=== PATIENT | female | born 1985 | race Caucasian/White ===

== ENCOUNTER 2024-03-16 11:01 | Emergency (ER) | payer OTHER, SELFPAY ==
[2024-03-16 11:10] VITALS: BP 129/78
[2024-03-16 12:24] VITALS: BMI 25.3
--- NOTE | 2024-03-16 12:25 | ED.GENMED ---
History of Present Illness
<Domitila Lynn PA-C - Last Filed: 03/16/24 17:00>
General
Chief Complaint: Abdominal Pain
Source: patient
Exam Limitations: none
Time Seen by Provider: 03/16/24 12:04
Nursing documentation reviewed up to this point in time: agreed with
History of Present Illness
History of Present Illness:
Patient is a 38-year-old female presenting to the emergency department for evaluation of right-sided abdominal pain. Patient states symptoms started around 2 PM on Friday afternoon while she was playing with her kids. She reports a cramping type
pain in her right lower abdomen that has been constant. She denies any radiation of pain around to her back or to her pelvis. Pain has been severe enough to keep her awake at night. She does endorse associated nausea, but no vomiting. She has
had significant anorexia and has not eaten anything since pain onset on Friday. Patient reports a fever of 100.4 F yesterday and chills throughout the day. Patient denies any urinary symptoms or abnormal vaginal bleeding or discharge. Patient
does note that initially she felt overall achy and unwell and is wondering if it may be food poisoning. Given persistence of symptoms and severity she sought medical attention today.
Patient was seen in the urgent care this morning and was referred to the emergency department for further evaluation.
Patient denies any history of ovarian cysts. Patient has had 2 sections in the past but denies any other abdominal surgeries.
Review of Systems
<Domitila Lynn PA-C - Last Filed: 03/16/24 17:00>
Review of Systems
Allergies reviewed?: Yes
All Other Systems: ROS reviewed and negative except as documented in HPI and ROS
Phy Exam
<Domitila Lynn PA-C - Last Filed: 03/16/24 17:00>
Physical Exam
Physical Exam:
Vitals: Patient's vital signs are stable. Afebrile
General: Patient is well appearing, no acute distress. Nontoxic appearing
Skin: Warm and dry, no rashes or lesions
Head: Normocephalic, atraumatic
Eyes: Sclera nonicteric. EOMs intact. No nystagmus.
Throat: Protecting airway
Neck: Normal ROM, no cervical spine tenderness, no meningismus
Cardiac: Regular rate and rhythm, no murmurs.
Pulm: Normal respiratory effort, no wheezes, rales, rhonchi heard on exam.
Abdomen: Abdomen soft. Moderate tenderness in right lower quadrant at McBurney's point with no rebound tenderness or guarding. No tenderness lower in pelvic region. No CVA tenderness
Extremities: No evidence of cyanosis or edema
Neuro: Grossly intact.
Psychiatric: Normal affect.
Course
<Domitila Lynn PA-C - Last Filed: 03/16/24 17:00>
Orders/Labs/Results
Orders:
Orders
03/16/24 12:21
0.9% Sodium Chloride 1000 ml [Nss] 1,000 ml IV BOLUS
Ketorolac [Toradol] 15 mg IV NOW STA
Test Result ONCE
03/16/24 12:27
Complete Blood Count/With Diff Urgent
Comprehensive Metabolic Panel Urgent
HCG, Serum Qualitative Screen Urgent
Lipase Urgent
03/16/24 12:29
CT Abd/Pel (IV only)-DH only Urgent
Comment:
Reason For Exam: RLQ abdominal pain, +nasuea and anorexia
03/16/24 13:12
Urinalysis Reflex To Culture Urgent
Date Specimen was Collected: 03/16/24
Time Specimen was Collected: 13:11
Urine Microscopic Reflex Cult Urgent
Urine Culture Urgent
PADMINI Source: U
Specimen Description:
Date Specimen was Collected: 03/16/24
Time Specimen was Collected: 13:11
03/16/24 15:09
Cephalexin Monohydrate [Keflex] 500 mg PO NOW STA
Abnormal Lab Results
03/16/24 03/16/24
12:27 13:12
Absolute Neuts (auto) 7.5 H 10^3/uL
(1.4-6.5)
Absolute Lymphs (auto) 0.8 L 10^3/uL
(1.2-3.4)
Absolute Monos (auto) 0.8 H 10^3/uL
(0.1-0.6)
Neutrophils % 81.7 H %
(42.2-75.2)
Lymphocytes % 8.8 L %
(20.5-51.1)
Creatinine 0.5 L mg/dL
(0.6-1.0)
Glucose 100 H mg/dl
(70-99)
Urine Ketones 3+ A
(Negative)
Ur Occult Blood Reflex 2+ A
(Negative)
Urine Nitrite (Reflex) Positive A
(Negative)
Leukocyte Esterase Rfl Trace A
(Negative)
Urine RBC 3-6 A /HPF
(0-2)
Urine Bacteria (Reflex) Many A
(Negative)
03/16/24 12:27
03/16/24 12:27
Vital Signs
Initial and Last Documented VS:
Initial Vital Signs
Temp Pulse Resp BP Pulse Ox
98.8 F 76 18 129/78 100
03/16/24 11:10 03/16/24 11:10 03/16/24 11:10 03/16/24 11:10 03/16/24 11:10
Last Documented Vital Signs
Temp Pulse Resp BP Pulse Ox
98.8 F 69 16 125/74 99
03/16/24 11:10 03/16/24 13:13 03/16/24 14:00 03/16/24 13:13 03/16/24 13:13
<Olivia Casanova MD - Last Filed: 03/16/24 14:21>
Orders/Labs/Results
Orders:
Orders
03/16/24 12:21
0.9% Sodium Chloride 1000 ml [Nss] 1,000 ml IV BOLUS
Ketorolac [Toradol] 15 mg IV NOW STA
Test Result ONCE
03/16/24 12:27
Complete Blood Count/With Diff Urgent
Comprehensive Metabolic Panel Urgent
HCG, Serum Qualitative Screen Urgent
Lipase Urgent
03/16/24 12:29
CT Abd/Pel (IV only)-DH only Urgent
Comment:
Reason For Exam: RLQ abdominal pain, +nasuea and anorexia
03/16/24 13:12
Urinalysis Reflex To Culture Urgent
Date Specimen was Collected: 03/16/24
Time Specimen was Collected: 13:11
Urine Microscopic Reflex Cult Urgent
Urine Culture Urgent
PADMINI Source: U
Specimen Description:
Date Specimen was Collected: 03/16/24
Time Specimen was Collected: 13:11
03/16/24 15:09
Cephalexin Monohydrate [Keflex] 500 mg PO NOW STA
Abnormal Lab Results
03/16/24 03/16/24
12:27 13:12
Absolute Neuts (auto) 7.5 H 10^3/uL
(1.4-6.5)
Absolute Lymphs (auto) 0.8 L 10^3/uL
(1.2-3.4)
Absolute Monos (auto) 0.8 H 10^3/uL
(0.1-0.6)
Neutrophils % 81.7 H %
(42.2-75.2)
Lymphocytes % 8.8 L %
(20.5-51.1)
Creatinine 0.5 L mg/dL
(0.6-1.0)
Glucose 100 H mg/dl
(70-99)
Urine Ketones 3+ A
(Negative)
Ur Occult Blood Reflex 2+ A
(Negative)
Urine Nitrite (Reflex) Positive A
(Negative)
Leukocyte Esterase Rfl Trace A
(Negative)
Urine RBC 3-6 A /HPF
(0-2)
Urine Bacteria (Reflex) Many A
(Negative)
03/16/24 12:27
03/16/24 12:27
Vital Signs
Initial and Last Documented VS:
Initial Vital Signs
Temp Pulse Resp BP Pulse Ox
98.8 F 76 18 129/78 100
03/16/24 11:10 03/16/24 11:10 03/16/24 11:10 03/16/24 11:10 03/16/24 11:10
Last Documented Vital Signs
Temp Pulse Resp BP Pulse Ox
98.8 F 69 16 125/74 99
03/16/24 11:10 03/16/24 13:13 03/16/24 14:00 03/16/24 13:13 03/16/24 13:13
<Domitila Lynn PA-C - Last Filed: 03/16/24 17:00>
MDM/Problems Addressed
Differential Diagnosis Includes:
Not limited to: Enteritis, appendicitis, mesenteric adenitis, UTI, kidney stone, ovarian cyst, ovarian torsion
MDM/Problems Addressed:
38-year-old female presenting with 2 days of right lower abdominal pain associated with anorexia and low-grade fevers at home. No urinary symptoms, vomiting, diarrhea, or constipation. No history of ovarian cyst. Patient's vital signs are stable,
she is afebrile here. Patient is very well-appearing, conversational and nontoxic. Abdomen is soft with mild tenderness in right lower quadrant near McBurney's point without rebound tenderness or guarding. No CVA tenderness. Patient has no lower
tenderness in pelvic region bilaterally. Labs were initiated in triage which showed no clinically significant abnormalities. test is negative. Patient's pain does appear more superior to the pelvic region. Given patient's history of
fevers at home�will start with CT scan abdomen/pelvis to rule out acute intra-abdominal infection. Will check urinalysis, as well. Presentation not consistent with ovarian torsion. Will give Toradol, fluids.
CT report reviewed. Mild colitis, nonspecific. There is a cyst noted on the right ovary with small amount of free fluid. Pain possibly related to recent ovarian cyst rupture. Urinary bladder wall thickening noted on CT scan recommended to
correlate with urinalysis. UA appears somewhat equivocal for infection given positive for nitrate and leukocyte Estrace, although few WBCs. Given patient's history of fever and abdominal pain�will treat with 7 days of Keflex although unsure if
contributing to patient's symptoms. Close return precautions discussed given known ovarian cyst and risk of torsion. Although again�exam today not consistent with torsion. Patient has responded well to Toradol and without pain at this time.
Patient will follow-up with both primary care and [facility]. Close return precautions discussed. Patient seen with attending physician. Patient stable for discharge.
Chronic conditions affecting care:
N/A
Acute Exacerbation and/or Progression of Chronic Illness:
N/A
<Domitila Lynn PA-C - Last Filed: 03/16/24 17:00>
*Radiology
Radiology exam reviewed: preliminary read by ED provider and radiology read reviewed
*Pulse Oximetry
Patient hypoxic: no
*EKG
Interpreted by ED Provider?: NA
*Manager Club Interpretation
Rate: Manager Club- N/A
*Critical Care Note
Total Time (30-74mins, 75-104mins- exclusive of procedures): Not Applicable
ED Attending Note
<Domitila Lynn PA-C - Last Filed: 03/16/24 17:00>
-
Portions of this chart may have been created with voice recognition software.� Occasional wrong word or��sound alike� substitutions may have occurred due to the inherent limitations of voice recognition software.
<Olivia Casanova MD - Last Filed: 03/16/24 14:21>
ED Attending Note
Patient seen and examined by attending physician: Yes
I performed the substantive portion of visit, reviewed & personally made and approve the management plan that is documented in note by myself or SHELBIE.: Yes
ED Attending Note:
38-year-old woman presenting to the emergency department with abdominal pain for the past 2 days. Right lower quadrant constant with some flares. No radiation. No vaginal discharge. Some nausea but no vomiting. No diarrhea. No prior surgical
history. No sick contacts. No urinary symptoms. Last menstrual period February 21. Vitals are unremarkable and exam does show some right lower quadrant tenderness. otherwise exam is reassuring and she is well appearing. Differential is broad
but consists of UTI versus kidney stone versus enthesitis less likely. Could be ovarian cyst rupture.
Exam not consistent with torsion or PID. Will obtain blood work and CT. Dispo pending results
Discharge Plan
Departure
Patient Disposition: Home (Routine Discharge)
Date of Disposition: 03/16/24
Time of Disposition: 15:09
Patient with high blood pressure during this ER visit?: No
Condition: Good
Covid-19: Not Applicable
Discharge Problem:
Acute UTI, Abdominal pain, Ovarian cyst, right
Instructions: Abdominal Pain, Adult ED, Urinary Tract Infection, Adult ED, Ovarian Cyst ED
Prescriptions:
New
cephalexin 500 mg capsule
500 mg PO BID 7 Days Qty: 14 0RF
No Action
vit-iron fum-folic ac 1 EACH tablet
1 ea PO DAILY
acetaminophen 325 mg Tablet
650 mg PO Q4HPRN PRN (Reason: mild pain) Qty: 0 0RF
ibuprofen 600 mg Tablet
600 mg PO Q6HPRN PRN (Reason: cramps) Qty: 0 0RF
Referrals:
Loren Waters MD [Family Provider] - Follow up in 5-7 days
Activity Restrictions/Additional Instructions:
RETURN TO THE EMERGENCY DEPARTMENT WITH ANY FEVERS, SEVERE/PERSISTENT ABDOMINAL PAIN, INTRACTABLE NAUSEA/VOMITING, SEVERE BACK PAIN, LOSS OF APPETITE, WORSENING IN CURRENT SYMPTOMS, OR ANY OTHER CONCERNS
-Your prescriptions have been sent to your pharmacy.
-You can take motrin/tylenol at home as needed for discomfort. It is important to stay well hydrated.
-Follow-up with your primary care/OBGYN for further evaluation/management.
Monitor your symptoms closely and return to the emergency department with any acute worsening/new symptoms.
Interventions
Interventions:
*Risk Screen - Suicide Last Done: 03/16/24 12:24
*General Assessment Last Done: 03/16/24 12:24
*Neglect/Abuse Screening Last Done: 03/16/24 12:24
ED- Fall Risk Assessment Last Done: 03/16/24 15:25
*ED COVID-19 Vaccine History Last Done: 03/16/24 12:21
*Nursing Disposition Last Done: 03/16/24 15:25
OM-Efliak-Ngtynmjmuz Assessment Last Done: 03/16/24 12:24
Discharge Date and Time
Discharge Date/Time: 03/16/24 15:26
Print Language: SOUTH SUDANESE
[2024-03-16] MEDS: NSS 1000 IV (12:31)
[2024-03-16 12:48] LABS: % Basophils 0.3 % (0-2); % Eosinophils 0.3 % (0-6); % Immature Granulocytes 0.2 % (0-0.5); % Lymphocytes 8.8 % (20.5-51.1); % Monocytes 8.7 % (1.7-9.3); % Neutrophils 81.7 % (42.2-75.2); Absolute Lymphocytes 0.8 10^3/uL (1.2-3.4); Absolute Monocytes 0.8 10^3/uL (0.1-0.6); Absolute Neutrophils 7.5 10^3/uL (1.4-6.5); Hematocrit 37.6 % (37.0-47.0); Hemoglobin 13.1 g/dL (12.0-16.0); Mean Corp Hgb Conc. 34.8 g/dL (33.0-37.0); Mean Corpuscular Hgb 30.5 pg (27.0-31.0); Mean Corpuscular Volume 87.6 fL (81.0-99.0); Mean Platelet Volume 10.1 fL (7.4-10.4); Nucleated Red Blood Cells % 0 %; Platelet Count 155 10^3/uL (130-400); Red Blood Cell Count 4.29 10^6/uL (4.20-5.40); White Blood Cell Count 9.2 10^3/uL (4.8-10.8)
[2024-03-16 12:58] LABS: HCG, Serum Qualitative Screen Negative
[2024-03-16 13:05] LABS: ALT (SGPT) 13 U/L (0-35); AST (SGOT) 22 U/L (14-36); Albumin 4.2 g/dl (3.5-5.0); Alkaline Phosphatase 88 U/L (38-126); Blood Urea Nitrogen 13 mg/dl (7-17); Calcium 9.4 mg/dl (8.4-10.2); Carbon Dioxide 24 mmol/L (22-30); Chloride 104 mmol/L (98-107); Estimated Creatinine Clearance 112 ml/min; Glucose 100 mg/dl (70-99); Lipase 61 U/L (23-300); Sodium 139 mmol/L (135-145); Total Bilirubin 1.3 mg/dl (0.2-1.3); Total Protein 6.8 g/dl (6.3-8.2); eGFR > 60.00
[2024-03-16] MEDS: TORADOL 15 MG IV (13:09)
[2024-03-16 13:13] VITALS: BP 125/74
[2024-03-16 13:47] LABS: Urine Albumin Trace (Neg - Trace); Urine Bilirubin Negative (Negative); Urine Character Clear (Clear); Urine Color Yellow; Urine Glucose Negative (Negative); Urine Ketone 3+ (Negative); Urine Leukocyte Trace (Negative); Urine Nitrite Positive (Negative); Urine Occult Blood 2+ (Negative); Urine Specific Gravity 1.025 (<1.030); Urine Urobilinogen Negative (Neg - 1+)
[2024-03-16 15:18] LABS: Urine Mucus Moderate; Urine Squamous Cell 26-30 /LPF (Few)
[2024-03-16 15:19] LABS: Urine Amorphous Seen
[2024-03-16 15:20] LABS: Urine Bacteria Many (Negative)
[2024-03-16] MEDS: KEFLEX 500 MG PO (15:22)
== END 2024-03-16 15:26 | disposition home or self-care (01) ==
LOC: EMR 11:01
PROVIDERS: Physician Assistant; EMERGENCY PHYSICIAN Student in an Organized Health Care Education/Training Program; FAMILY PHYSICIAN Internal Medicine
DX: N39.0 Urinary tract infection, site not specified (principal); R10.9 Unspecified abdominal pain; N83.201 Unspecified ovarian cyst, right side; Z32.02 Encounter for pregnancy test, result negative
CPT/HCPCS: 99284; 96374; 96361; 74177; 80053; 81003; 81015; 83690; 84703; 85025; 87077; 87086; 87186; Q9967